=== PATIENT | female | born 2000 ===

== ENCOUNTER 2020-06-26 10:27 | Outpatient (REF) | payer OTHER, SELFPAY | END 2020-06-26 10:28 | disposition home or self-care (01) | LOC: HO.LAB 10:27 | PROVIDERS: Visit Provider Internal Medicine | DX: Z20.822 Contact with and (suspected) exposure to COVID-19 (principal) | CPT/HCPCS: 36415; C9803; U0003 ==

== ENCOUNTER 2020-10-13 16:02 | Emergency (ER) | payer MEDICAID, SELFPAY ==
--- NOTE | ~2020-10-13 | XR_ITS ---
EXAMINATION: XR ANKLE, RIGHT CLINICAL INFORMATION: Trauma COMPARISON: None TECHNIQUE: AP, lateral, and mortise views of the right ankle. FINDINGS: The bones and soft tissues are normal. No fracture. Alignment is anatomic. Joint spaces are maintained. No joint effusion. XR/XR ankle RT min 3V IMPRESSION: Normal right ankle.
[2020-10-13 16:03] VITALS: BP 109/57; PULSE 95; RESP 12; TEMP 36.9; O2SAT 99; BMI 29.6
--- NOTE | 2020-10-13 16:15 | ED_ITS ---
HPI - Extremity Injury (Lower) General Chief Complaint: Extremity Injury, Lower Stated Complaint: ankle inj Time Seen by Provider: 10/13/20 16:15 History of Present Illness HPI Narrative: Patient complains of right ankle pain and swelling after twisting it at the gym today, no other injury, no numbness weakness or tingling, no neck pain or back pain Related Data Previous Rx's Medication Instructions Recorded ibuprofen 600 mg PO Q6H PRN #20 tab 10/13/20 Allergies Allergy/AdvReac Type Severity Reaction Status Date / Time No Known Allergies Allergy Verified 10/13/20 16:14 [No Known Allergies*] Review of Systems Review of Systems: Positive for right ankle pain and swelling No numbness no weakness no tingling no fever no chills no headache no neck pain no back pain no radiating pain no skin rash Yes all other systems are reviewed and are negative [facility] Past Medical History Source: nursing notes reviewed Social History Social History Advance Directives: No Advance Directives Information Provided: No Patient : No Physical Exam Vital Signs: Vital Signs: Last Vital Signs Temp 98.5 F 10/13/20 16:03 Pulse 95 10/13/20 16:03 Resp 12 10/13/20 16:03 BP 109/57 L 10/13/20 16:03 Pulse Ox 99 10/13/20 16:03 Body Mass Index 29.6 General appearance no acute distress Head is normocephalic atraumatic The neck is supple nontender Respiratory no distress A back full range of motion Extremities the right ankle has tenderness and swelling over lateral malleolus, no tenderness or defect over Achilles tendon, skin was normal no wounds or laceration Neurovascular intact distal Other extremities normal Neuro no gross motor or sensory deficit Discharge Plan Discharge Clinical Impression: Right ankle sprain Patient Disposition: Home, Self-Care Additional Instructions: X-ray was normal, no broken bone seen Follow with orthopedist Weightbearing as tolerated Return any concerns Prescriptions: New ibuprofen 600 mg tablet 600 mg PO Q6H PRN (Reason: pain) Qty: 20 RF: 0 Referrals: Juma Leger MD [Physician] - 2 days (Right ankle sprain) Interventions: ED Discharge Assessment Last Done: 10/13/20 16:48 Discharge Date/Time: 10/13/20 16:48
--- NOTE | 2020-10-13 16:45 | PC.NURSE ---
PT PROVIDED AND EDUCATED ON USE OF CRUTCHES AND GIVEN AIRCAST. PT TOLERATES WELL.
== END 2020-10-13 16:48 | disposition home or self-care (01) ==
PROVIDERS: Emergency Provider Emergency Medicine; PCP Pediatrics
DX: S93.401A Sprain of unspecified ligament of right ankle, initial encounter (principal); X50.1XXA Overexertion from prolonged static or awkward postures, initial encounter; Y93.89 Activity, other specified; Y92.39 Other specified sports and athletic area as the place of occurrence of the external cause; Y99.9 Unspecified external cause status
CPT/HCPCS: 73610; 99283

== ENCOUNTER → 2020-10-26 10:51 | Outpatient (BNVA) | payer OTHER, SELFPAY | PROVIDERS: PCP Pediatrics; Visit Provider Physician Assistant | DX: S93.401A Sprain of unspecified ligament of right ankle, initial encounter (principal) | CPT/HCPCS: 99202 ==

== ENCOUNTER 2021-05-09 10:33 | Emergency (ER) | payer OTHER, SELFPAY ==
--- NOTE | ~2021-05-09 | US_ITS ---
EXAMINATION: US PELVIS CLINICAL INFORMATION: Left lower quadrant pain with radiation to rectum. COMPARISON: CT abdomen and pelvis with contrast 07/20/2019 TECHNIQUE: Ultrasound of the pelvis is performed using transabdominal transducer. Patient declined transvaginal imaging. FINDINGS: Uterus: The uterus is anteverted and anteflexed measuring 8.3 x 4.5 x 4.3 cm. The double wall endometrial thickness is 13 mm. No fluid in uterine cavity. There is a right exophytic fibroid extending from the uterine fundus and body with overall size 5.4 x 4.8 x 4.9 cm. This is increased in size from CT measurement 3.3 x 2.7 x 2.9 cm. Adnexa: The right ovary is visualized measuring 2.3 x 1.6 x 1.8 cm. The left ovary is not visualized. There is no visible left pelvic mass or pelvic ascites. US/US pelvic complete IMPRESSION: 1. Right exophytic fibroid 5.4 cm. Prior measurement 3.[address] 07/20/2019. 2. Right ovary unremarkable. Left ovary not visualized. No pelvic ascites.
[2021-05-09 11:28] VITALS: BP 112/98; PULSE 94; RESP 18; TEMP 36.6; O2SAT 99; BMI 32.8
[2021-05-09 12:07] LABS: Basophils Percent Auto 0.4 % (0-2); Eosinophils Absolute Auto 0.1 X10*3/uL (0.0-0.4); Hematocrit 38.6 % (37.0-47.0); Hemoglobin 12.7 g/dl (12.0-16.0); Imm Gran Abs Auto 0.03 X10*3/uL (0.00-0.03); Imm Gran Pct Auto 0.4 % (0.0-0.4); Lymphocytes Absolute Auto 1.4 X10*3/uL (1.2-4.9); Lymphocytes Percent Auto 16.3 % (20-40); MANUAL DIFF FLAG NO; Mean Corpuscular HGB Conc 32.9 g/dl (31.0-35.0); Mean Corpuscular Hemoglobin 31.6 pg (27.0-33.0); Mean Platelet Volume 9.8 fL (9.4-12.3); Monocytes Absolute Auto 0.5 X10*3/uL (0.1-1.2); Monocytes Percent Auto 6.2 % (2-11); Neutrophils Absolute Auto 6.3 x10*3/uL (2.0-8.3); Neutrophils Percent Auto 75.7 % (45-73); Platelet Count 294 X10*3/uL (160-400); Red Blood Count 4.02 X10*6/uL (4.20-5.50); Red Cell Distribution Width 11.8 % (11.0-16.0); White Blood Count 8.4 X10*3/uL (4.8-10.8)
[2021-05-09 12:23] LABS: Anion Gap 13 (12-20); Blood Urea Nitrogen 8 mg/dL (9-16); Calcium 9.8 mg/dL (8.4-10.2); Carbon Dioxide 22 mmol/L (22-29); Chloride 108 mmol/L (96-108); Creatinine Clr Calc Pharmacy 115.1; Estimated Glomerular Filt Rate > 60; Glucose Random 94 mg/dL (60-115); Potassium 3.9 mmol/L (3.3-5.1); Sodium 139 mmol/L (135-145)
--- NOTE | 2021-05-09 12:24 | ED_ITS ---
HPI - Abdominal Pain General Chief Complaint: Abdominal Pain Stated Complaint: lower l abd pain Time Seen by Provider: 05/09/21 12:24 Source: patient Mode of arrival: ambulatory Limitations: no limitations History of Present Illness HPI narrative: left lower abdominal pain for 1 day, patient feels it going into the anal area. LMP 2 weeks ago MD elicited complaint: abdominal pain Onset (ago): day(s) Pain Consistency: intermittent Location: LLQ Severity: mild Quality: stabbing Associated symptoms: nausea and diarrhea Related Data Previous Rx's Medication Instructions Recorded ibuprofen 600 mg tablet 600 mg PO Q6H PRN #20 tab 10/13/20 naproxen 500 mg tablet (Naprosyn) 500 mg PO BID #20 tab 05/09/21 Allergies Allergy/AdvReac Type Severity Reaction Status Date / Time No Known Allergies Allergy Verified 10/26/20 10:56 [No Known Allergies*] Review of Systems Constitutional: Reports no additional constitutional complaints Eyes: Reports no additional eye complaints Denies dizziness Cardiovascular: Reports no additional cardiovascular complaints Respiratory: Reports as per HPI Gastrointestinal: Reports no additional gastrointestinal complaints Genitourinary: Reports no additional female genitourinary complaints Musculoskeletal: Reports no additional musculoskeletal complaints Skin/Breast: Denies rash Reports system reviewed and no additional complaints, except as documented, Denies dizziness and Denies Sensory deficit (Neuro) Psychiatric: Denies anxiety Physical Exam Vital Signs: Vital Signs: Last Vital Signs Temp 98 F 05/09/21 11:28 Pulse 94 05/09/21 11:28 Resp 18 05/09/21 11:28 BP 112/98 H 05/09/21 11:28 Pulse Ox 99 05/09/21 11:28 BMI result Body Mass Index 32.8 Const: General: healthy appearing Nutritional Appearance: average body florez bitus Orientation/consciousness: oriented to person and patient oriented x3 Limitations: no limitations HENMT: Head: Yes normal to inspection Ears: external ears normal General nose exam: Normal external nose present Mouth: Normal oral and palatal mucosa present and oropharynx normal Throat: Yes posterior oropharynx normal Eyes: General: appearance normal, both eyes and all related structures Neck: Other: supple Neck: Yes normal visual inspection Chest: Chest palpation & inspection: normal inspection of the chest Resp: Auscultation: clear to auscultation bilaterally Cardio: Jugular venous distension: no JVD Rate: regular rate Rhythm: regular rhythm Heart sounds: S1 normal heart sound present and S2 normal heart sound present GI: Inspection: Yes normal to inspection Palpation (GI): Soft to palpation, nontender and No hepatosplenomegaly present Auscultation: normal bowel sounds : General: Yes no CVA tenderness Back/Spine/Pelvis: Back: no CVA tenderness Skin: General skin exam: no rashes or lesions noted Neuro: General: oriented to person and patient oriented x3 Cranial nerves: Yes CN's II-XII intact bilaterally Motor exam (neuro): 5/5 motor strength present throughout Sensory Exam: No Sensory deficit (Neuro) Extrem: General: Yes normal to inspection Psych: Appearance: grossly normal Course Reevaluation(s) Reevaluation #1: patient with an enlarging fibroid will refer to [facility] for evaluation Time: 15:17 MDM - Abdominal Pain Lab Data Result diagrams: 05/09/21 11:52 05/09/21 11:52 Labs: Lab Results 05/09/21 05/09/21 05/09/21 Range/Units 11:52 11:52 12:31 WBC 8.4 (4.8-10.8) X10*3/uL RBC 4.02 L (4.20-5.50) X10*6/uL Hgb 12.7 (12.0-16.0) g/dl Hct 38.6 (37.0-47.0) % MCV 96.0 (80.0-98.0) fL MCH 31.6 (27.0-33.0) pg MCHC 32.9 (31.0-35.0) g/dl RDW 11.8 (11.0-16.0) % Plt Count 294 (160-400) X10*3/uL MPV 9.8 (9.4-12.3) fL Immature Gran % (Auto) 0.4 (0.0-0.4) % Neut % (Auto) 75.7 H (45-73) % Lymph % (Auto) 16.3 L (20-40) % [place] % (Auto) 6.2 (2-11) % Eos % (Auto) 1.0 (0-4) % Baso % (Auto) 0.4 (0-2) % Lymph # (Auto) 1.4 (1.2-4.9) X10*3/uL [place] # (Auto) 0.5 (0.1-1.2) X10*3/uL Eos # (Auto) 0.1 (0.0-0.4) X10*3/uL Baso # (Auto) 0.0 (0.0-0.2) X10*3/uL Abs Immat Gran (auto) 0.03 (0.00-0.03) X10*3/uL Absolute Neuts (auto) 6.3 (2.0-8.3) x10*3/uL Absolute Nucleated RBC 0.000 (0.0-0.012) X10*3/uL Nucleated RBC % (auto) 0.0 (0.0-0.2) /100WBC Sodium 139 (135-145) mmol/L Potassium 3.9 (3.3-5.1) mmol/L Chloride 108 (96-108) mmol/L Carbon Dioxide 22 (22-29) mmol/L Anion Gap 13 (12-20) BUN 8 L (9-16) mg/dL Creatinine 0.80 (0.5-1.4) mg/dL Estim Creat Clear Calc 115.1 Estimated GFR > 60 Random Glucose 94 (60-115) mg/dL Calcium 9.8 (8.4-10.2) mg/dL Urine Color YELLOW Urine Appearance CLEAR Urine pH 6.0 (5.0-8.0) Ur Specific [place] 1.010 (1.005-1.025) Urine Protein NEG (NEG-TRACE) MG/DL Urine Glucose (UA) NEG (NEG) MG/DL Urine Ketones NEG (NEG) MG/DL Urine Blood TRACE (NEG) Urine Nitrite NEG (NEG) Ur Leukocyte Esterase NEG (NEG) Urine RBC 0-2 (0) /HPF Urine WBC 0 (0-4) /HPF Ur Squamous Epith Cells 2+ /LPF Urine Bacteria 1+ /LPF Urine Mucus 1+ /LPF Urine Test (NEGATIVE) 05/09/21 Range/Units 12:31 WBC (4.8-10.8) X10*3/uL RBC (4.20-5.50) X10*6/uL Hgb (12.0-16.0) g/dl Hct (37.0-47.0) % MCV (80.0-98.0) fL MCH (27.0-33.0) pg MCHC (31.0-35.0) g/dl RDW (11.0-16.0) % Plt Count (160-400) X10*3/uL MPV (9.4-12.3) fL Immature Gran % (Auto) (0.0-0.4) % Neut % (Auto) (45-73) % Lymph % (Auto) (20-40) % [place] % (Auto) (2-11) % Eos % (Auto) (0-4) % Baso % (Auto) (0-2) % Lymph # (Auto) (1.2-4.9) X10*3/uL [place] # (Auto) (0.1-1.2) X10*3/uL Eos # (Auto) (0.0-0.4) X10*3/uL Baso # (Auto) (0.0-0.2) X10*3/uL Abs Immat Gran (auto) (0.00-0.03) X10*3/uL Absolute Neuts (auto) (2.0-8.3) x10*3/uL Absolute Nucleated RBC (0.0-0.012) X10*3/uL Nucleated RBC % (auto) (0.0-0.2) /100WBC Sodium (135-145) mmol/L Potassium (3.3-5.1) mmol/L Chloride (96-108) mmol/L Carbon Dioxide (22-29) mmol/L Anion Gap (12-20) BUN (9-16) mg/dL Creatinine (0.5-1.4) mg/dL Estim Creat Clear Calc Estimated GFR Random Glucose (60-115) mg/dL Calcium (8.4-10.2) mg/dL Urine Color Urine Appearance Urine pH (5.0-8.0) Ur Specific [place] (1.005-1.025) Urine Protein (NEG-TRACE) MG/DL Urine Glucose (UA) (NEG) MG/DL Urine Ketones (NEG) MG/DL Urine Blood (NEG) Urine Nitrite (NEG) Ur Leukocyte Esterase (NEG) Urine RBC (0) /HPF Urine WBC (0-4) /HPF Ur Squamous Epith Cells /LPF Urine Bacteria /LPF Urine Mucus /LPF Urine Test NEGATIVE (NEGATIVE) Imaging Data pelvic US: Radiologist's impression: IMPRESSION: ? 1. Right exophytic fibroid 5.4 cm. Prior measurement 3.[address] 07/20/2019. 2. Right ovary unremarkable. Left ovary not visualized. No pelvic ascites. Discharge Plan Discharge Clinical Impression: Fibroid, uterine Qualifiers: Uterine leiomyoma location: intramural, submucous, and subserous Qualified Code(s): D25.1 - Intramural leiomyoma of uterus Patient Disposition: Home, Self-Care Prescriptions: New naproxen [Naprosyn] 500 mg tablet 500 mg PO BID Qty: 20 RF: 0 No Action ibuprofen 600 mg tablet 600 mg PO Q6H PRN (Reason: pain) Qty: 20 RF: 0 Referrals: Galindo Mcdonough MD [Physician] - 1 week [facility] [place] Social History Social History Advance Directives: No Advance Directives Information Provided: No Patient : No Current occupational status: unemployed Current occupation: rt handed
[2021-05-09 12:37] LABS: Appearance Urine CLEAR; Color Urine YELLOW; Glucose Urine UA NEG (NEG); Leukocyte Esterase Urine NEG (NEG); Nitrite Urine NEG (NEG); UACC Culture Trigger NO; Urine Blood TRACE (NEG); Urine Ketones NEG (NEG); Urine Protein NEG (NEG-TRACE)
[2021-05-09 12:40] LABS: UPreg QC Valid YES; Urine Pregnancy NEGATIVE (NEGATIVE)
[2021-05-09 12:52] LABS: Bacteria Urine 1+ /LPF; Mucus Urine 1+ /LPF; RBC Urine 0-2 /HPF (0); Squamous Epithelial Cell Urine 2+ /LPF; WBC Urine 0 /HPF (0-4)
== END 2021-05-09 15:38 | disposition home or self-care (01) ==
PROVIDERS: Emergency Provider Emergency Medicine; PCP Pediatrics
DX: D25.1 Intramural leiomyoma of uterus (principal); R10.32 Left lower quadrant pain; Z79.899 Other long term (current) drug therapy
CPT/HCPCS: 36415; 76856; 80048; 81001; 81025; 85025; 99283; 99284

== ENCOUNTER 2021-10-02 13:29 | Outpatient (REF) | payer OTHER, SELFPAY ==
[2021-10-02 15:23] LABS: C Reactive Protein 0.98 mg/dL (< or = 0.50)
[2021-10-04 13:02] LABS: Transglutaminase Ab IgG <1.0 U/mL; Transglutaminase IgA 1.1 U/mL
[2021-10-08 12:51] LABS: Gliadin Deamidated IgA Ab <1.0 U/mL; Gliadin Deamidated IgG Ab <1.0 U/mL
== END 2021-10-02 13:30 | disposition home or self-care (01) ==
LOC: HO.LAB 13:29
PROVIDERS: PCP Pediatrics; Visit Provider Nurse Practitioner
DX: K58.0 Irritable bowel syndrome with diarrhea (principal); R10.9 Unspecified abdominal pain; Q89.9 Congenital malformation, unspecified; E66.3 Overweight; Z68.34 Body mass index [BMI] 34.0-34.9, adult
CPT/HCPCS: 36415; 82785; 86003; 86140; 86258; 86364; 99212

== ENCOUNTER → 2021-10-29 16:31 | Outpatient (BNVA) | payer OTHER, SELFPAY | PROVIDERS: PCP Pediatrics; Visit Provider Nurse Practitioner | DX: K58.0 Irritable bowel syndrome with diarrhea (principal); R11.2 Nausea with vomiting, unspecified | CPT/HCPCS: 99212 ==

== ENCOUNTER → 2021-12-25 16:30 | Outpatient (BNVA) | payer OTHER, SELFPAY | PROVIDERS: PCP Pediatrics; Visit Provider Nurse Practitioner | DX: K58.0 Irritable bowel syndrome with diarrhea (principal) | CPT/HCPCS: 99212 ==

== ENCOUNTER 2022-01-27 20:08 | Emergency (ER) | payer OTHER, SELFPAY ==
--- NOTE | ~2022-01-27 | CT_ITS ---
EXAMINATION: CT ABDOMEN AND PELVIS WITH CONTRAST CLINICAL INFORMATION: Right-sided abdominal tenderness COMPARISON: 07/20/2019 TECHNIQUE: Multidetector volumetric images were obtained from the superior aspect of the liver through the pubic symphysis following administration 85 mL of Omnipaque 350 intravenous contrast. Sagittal and coronal reformatted images were obtained on the technologist's workstation. Oral contrast: No This CT examination was performed using dose optimization techniques as appropriate, variously including the following: *Automated exposure control *Adjustment of mA and/or kV according to patient size (this includes techniques or standardized protocols for targeted exams where dose is matched to indication/reason for exam; i.e. extremities or head) *Use of iterative reconstruction technique DLP: 644 mGy-cm FINDINGS: LUNG BASES: Groundglass opacities at the lung bases. The visualized cardiac structures are unremarkable. LIVER, GALLBLADDER, AND BILIARY TREE: The liver is normal in size, shape, and attenuation. No focal hepatic lesion or biliary ductal dilatation is present. The gallbladder is unremarkable with no evidence of radiopaque gallstones, gallbladder wall thickening, or obvious pericholecystic inflammatory changes. PANCREAS: Unremarkable. SPLEEN: Unremarkable. ADRENAL GLANDS: Unremarkable. KIDNEYS AND URETERS: The left kidney is atrophic. Normal size right kidney. No hydronephrosis or nephrolithiasis. BLADDER: Unremarkable. GASTROINTESTINAL TRACT: The stomach is unremarkable. Normal caliber small bowel. No obstruction. Normal appendix. No colonic wall thickening or inflammation. No free air. Small volume of free fluid ABDOMINAL WALL: . Rectus diastases. No abdominal wall hernia seen. LYMPH NODES: Normal. VASCULAR: 13 vascular anatomy. The hepatic veins drain anteriorly into the IVC. The suprahepatic/intrahepatic IVC is not normally positioned. There is azygos continuation of the intrahepatic IVC. Normal caliber aorta. PELVIC VISCERA: Anteverted uterus. There is a heterogeneous hyperdense structure measuring 6.9 x 5.5 cm anterior to the uterine fundus. There is surrounding free fluid. This finding is increased from prior. This again may represent an exophytic fibroid. OSSEOUS STRUCTURES: No acute or suspicious osseous abnormality. CT/CT abdomen pelvis w con IMPRESSION: Increasing size of the heterogeneously enhancing mass in the anterior pelvis adjacent to the uterine fundus, again suggestive of an exophytic fibroid. Small volume of free fluid now present. Variant vascular anatomy, detailed above. Fleischner guidelines were followed.
[2022-01-27 20:19] VITALS: BP 108/64; PULSE 93; RESP 20; TEMP 36.6; O2SAT 97; BMI 33.6
[2022-01-27 22:55] VITALS: BP 116/70; PULSE 72; TEMP 37; O2SAT 96
--- NOTE | 2022-01-27 23:36 | ED.ABDPAIN ---
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 She reports the pains are sharp and stabbing in nature. She has nausea but has not vomited. Last BM today and it was normal. She reports a history of dairy allergy where she gets severe abdominal pain and anal spasms. She reports accidentally eating butter last night and thinks that this pain is due to her allergy. She took Benadryl before coming in. <DOROTHY Cisneros - Last Filed: 01/28/22 02:09> MD elicited complaint: abdominal pain <DOROTHY Cisneros Last Filed: 01/28/22 02:09> Pertinent past history: none <DOROTHY Cisneros Last Filed: 01/28/22 02:09> Onset (ago): hour(s) <DOROTHY Cisneros Last Filed: 01/28/22 02:09> Pain Consistency: constant <DOROTHY Cisneros Last Filed: 01/28/22 02:09> Location: periumbilical, RUQ and RLQ <DOROTHY Cisneros Last Filed: 01/28/22 02:09> Severity: moderate <DOROTHY Cisneros Last Filed: 01/28/22 02:09> Quality: stabbing and sharp <DOROTHY Cisneros Last Filed: 01/28/22 02:09> Radiation: none <DOROTHY Cisneros Last Filed: 01/28/22 02:09> Migration to: no migration <DOROTHY Cisneros Last Filed: 01/28/22 02:09> Exacerbating factors: movement <DOROTHY Cisneros Last Filed: 01/28/22 02:09> Relieving factors: nothing <DOROTHY Cisneros Last Filed: 01/28/22 02:09> Associated symptoms: nausea <DOROTHY Cisneros Last Filed: 01/28/22 02:09> Related Data Home Medications: Previous Rx's Medication Instructions Recorded ibuprofen 600 mg tablet 600 mg PO Q6H PRN pain #20 tabs 10/13/20 naproxen 500 mg tablet (Naprosyn) 500 mg PO BID #20 tabs 05/09/21 imipramine HCl 10 mg tablet 10 mg PO BEDTIME 30 days #30 tabs 10/02/21 <DOROTHY Cisneros Last Filed: 01/28/22 02:09> Allergies/Adverse Reactions: Allergies Allergy/AdvReac Type Severity Reaction Status Date / Time milk Allergy Mild unknown Verified 12/25/21 16:33 <DOROTHY Cisneros Last Filed: 01/28/22 02:09> Review of Systems Review of Systems Constitutional: No Fever, No Chills ENT/Mouth: No sore throat, No Rhinorrhea, No Swallowing Difficulty Eyes: No Eye Pain, No Swelling, No Redness Cardiovascular: No Chest Pain, No SOB, No Orthopnea, No Edema Respiratory: No Cough, No Sputum, No Wheezing, No dyspnea Gastrointestinal: + Nausea, No Vomiting, No Diarrhea, + abdominal Pain, No Hematochezia, No Melena Genitourinary: No Dysuria, No Urinary Frequency, No Hematuria Musculoskeletal: No joint pain, No Myalgias Skin: No Skin Lesions, No rash Neuro: No Weakness, No Numbness, No Dizziness, No Headache Psych: No Anxiety/Panic, No Depression Heme/Lymph: No Bruising, No Lymphadenopathy Endocrine: No Polyuria, No Polydipsia <DOROTHY Cisneros Last Filed: 01/28/22 02:09> PMFSH Past Medical History Surgical History: Surgical History H/O abdominal surgery H/O arthroscopic knee surgery History of bladder surgery <DOROTHY Cisneros - Last Filed: 01/28/22 02:09> Social History Social History: Social History Advance Directives: No Advance Directives Information Provided: Yes Current occupational status: unemployed Current occupation: rt handed <DOROTHY Cisneros - Last Filed: 01/28/22 02:09> Physical Exam ED Vital Signs: Vital Signs - 24 hr 01/27/22 20:19 01/27/22 22:55 01/27/22 23:57 Temperature 97.9 F 98.6 F Pulse Rate 93 72 Respiratory Rate 20 18 Blood Pressure 108/64 116/70 Pulse Oximetry 97 96 Oxygen Delivery Method Room Air Room Air BMI result Body Mass Index 33.6 <DOROTHY Cisneros - Last Filed: 01/28/22 02:09> Vital Signs - 24 hr 01/27/22 20:19 01/27/22 22:55 01/27/22 23:57 Temperature 97.9 F 98.6 F Pulse Rate 93 72 Respiratory Rate 20 18 Blood Pressure 108/64 116/70 Pulse Oximetry 97 96 Oxygen Delivery Method Room Air Room Air BMI result Body Mass Index 33.6 <China Frenandez DO - Last Filed: 01/28/22 02:36> Appearance: Alert. Oriented X3. No acute distress. Eyes: Pupils equal, round and reactive to light. ENT: Pharynx normal. Neck: Normal inspection. Neck supple. CVS: Normal heart rate and rhythm. Pulses normal. Respiratory: No respiratory distress. Breath sounds normal. Abdomen: Well-healed surgical abdominal scar in the mid abdomen and umbilical area. There is tenderness along the central abdomen, and right side of her abdomen with guarding. normal BS x4 Skin: Skin warm and dry. Normal skin color. Normal skin turgor. No rashes. Extremities: No lower extremity edema. Neuro: Oriented X 3. No motor deficit. No sensory deficit. 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 Tenderness on her abdomen with some guarding. Will get CT scan for further evaluation. 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 Tenderness on her abdomen with some guarding. Will get CT scan for further evaluation. CT scan uterine fibroid - patient aware we discussed following up with OB she is aware and plans to <China Fernandez DO - Last Filed: 01/28/22 02:36> Reevaluation(s) Reevaluation #1: Labs are unremarkable. CT scan is pending. Dr. Fernandez aware. <DOROTHY Cisneros - Last Filed: 01/28/22 02:09> MDM - Abdominal Pain Lab Data Result diagrams: : 01/27/22 23:54 01/27/22 23:54 <DOROTHY Cisneros - Last Filed: 01/28/22 02:09> Labs: Lab Results 01/27/22 01/27/22 01/28/22 Range/Units 23:54 23:54 00:03 WBC 10.1 (4.8-10.8) X10*3/uL RBC 4.34 (4.20-5.50) X10*6/uL Hgb 13.7 (12.0-16.0) g/dl Hct 40.6 (37.0-47.0) % MCV 93.5 (80.0-98.0) fL MCH 31.6 (27.0-33.0) pg MCHC 33.7 (31.0-35.0) g/dl RDW 11.9 (11.0-16.0) % Plt Count 351 (160-400) X10*3/uL MPV 9.6 (9.4-12.3) fL Immature Gran % (Auto) 0.3 (0.0-0.4) % Neut % (Auto) 70.9 (45-73) % Lymph % (Auto) 19.0 L (20-40) % [place] % (Auto) 7.0 (2-11) % Eos % (Auto) 2.4 (0-4) % Baso % (Auto) 0.4 (0-2) % Lymph # (Auto) 1.9 (1.2-4.9) X10*3/uL [place] # (Auto) 0.7 (0.1-1.2) X10*3/uL Eos # (Auto) 0.2 (0.0-0.4) X10*3/uL Baso # (Auto) 0.0 (0.0-0.2) X10*3/uL Abs Immat Gran (auto) 0.03 (0.00-0.03) X10*3/uL Absolute Neuts (auto) 7.1 (2.0-8.3) x10*3/uL Absolute Nucleated RBC 0.000 (0.0-0.012) X10*3/uL Nucleated RBC % (auto) 0.0 (0.0-0.2) /100WBC Sodium 139 (135-145) mmol/L Potassium 4.3 (3.3-5.1) mmol/L Chloride 103 (96-108) mmol/L Carbon Dioxide 24 (22-29) mmol/L Anion Gap 16 (12-20) BUN 15 D (9-16) mg/dL Creatinine 1.08 (0.5-1.4) mg/dL Estim Creat Clear Calc 85.7 Estimated GFR > 60 Random Glucose 97 (60-115) mg/dL Calcium 9.8 (8.4-10.2) mg/dL Magnesium 1.7 (1.6-2.6) mg/dL Total Bilirubin 0.6 (0.0-1.0) mg/dL Direct Bilirubin 0.3 (0.0-0.5) mg/dL AST 20 (5-31) U/L ALT 17 (0-31) U/L Alkaline Phosphatase 94 (39-117) U/L Total Protein 7.4 (6.5-8.0) g/dL Albumin 4.2 (3.5-5.0) g/dL Lipase 17 (8-78) U/L Urine Color Yellow Urine Appearance Clear Urine pH 6.5 (5.0-8.0) Ur Specific [place] 1.010 (1.005-1.025) Urine Protein Negative (Neg-Trace) mg/dL Urine Glucose (UA) Negative (Negative) mg/dL Urine Ketones Negative (Negative) mg/dL Urine Blood Negative (Negative) Urine Nitrite Negative (Negative) Ur Leukocyte Esterase Negative (Negative) Urine Test (NEGATIVE) 01/28/22 Range/Units 00:03 WBC (4.8-10.8) X10*3/uL RBC (4.20-5.50) X10*6/uL Hgb (12.0-16.0) g/dl Hct (37.0-47.0) % MCV (80.0-98.0) fL MCH (27.0-33.0) pg MCHC (31.0-35.0) g/dl RDW (11.0-16.0) % Plt Count (160-400) X10*3/uL MPV (9.4-12.3) fL Immature Gran % (Auto) (0.0-0.4) % Neut % (Auto) (45-73) % Lymph % (Auto) (20-40) % [place] % (Auto) (2-11) % Eos % (Auto) (0-4) % Baso % (Auto) (0-2) % Lymph # (Auto) (1.2-4.9) X10*3/uL [place] # (Auto) (0.1-1.2) X10*3/uL Eos # (Auto) (0.0-0.4) X10*3/uL Baso # (Auto) (0.0-0.2) X10*3/uL Abs Immat Gran (auto) (0.00-0.03) X10*3/uL Absolute Neuts (auto) (2.0-8.3) x10*3/uL Absolute Nucleated RBC (0.0-0.012) X10*3/uL Nucleated RBC % (auto) (0.0-0.2) /100WBC Sodium (135-145) mmol/L Potassium (3.3-5.1) mmol/L Chloride (96-108) mmol/L Carbon Dioxide (22-29) mmol/L Anion Gap (12-20) BUN (9-16) mg/dL Creatinine (0.5-1.4) mg/dL Estim Creat Clear Calc Estimated GFR Random Glucose (60-115) mg/dL Calcium (8.4-10.2) mg/dL Magnesium (1.6-2.6) mg/dL Total Bilirubin (0.0-1.0) mg/dL Direct Bilirubin (0.0-0.5) mg/dL AST (5-31) U/L ALT (0-31) U/L Alkaline Phosphatase (39-117) U/L Total Protein (6.5-8.0) g/dL Albumin (3.5-5.0) g/dL Lipase (8-78) U/L Urine Color Urine Appearance Urine pH (5.0-8.0) Ur Specific [place] (1.005-1.025) Urine Protein (Neg-Trace) mg/dL Urine Glucose (UA) (Negative) mg/dL Urine Ketones (Negative) mg/dL Urine Blood (Negative) Urine Nitrite (Negative) Ur Leukocyte Esterase (Negative) Urine Test NEGATIVE (NEGATIVE) <DOROTHY Cisneros - Last Filed: 01/28/22 02:09> Lab Results 01/27/22 01/27/22 01/28/22 Range/Units 23:54 23:54 00:03 WBC 10.1 (4.8-10.8) X10*3/uL RBC 4.34 (4.20-5.50) X10*6/uL Hgb 13.7 (12.0-16.0) g/dl Hct 40.6 (37.0-47.0) % MCV 93.5 (80.0-98.0) fL MCH 31.6 (27.0-33.0) pg MCHC 33.7 (31.0-35.0) g/dl RDW 11.9 (11.0-16.0) % Plt Count 351 (160-400) X10*3/uL MPV 9.6 (9.4-12.3) fL Immature Gran % (Auto) 0.3 (0.0-0.4) % Neut % (Auto) 70.9 (45-73) % Lymph % (Auto) 19.0 L (20-40) % [place] % (Auto) 7.0 (2-11) % Eos % (Auto) 2.4 (0-4) % Baso % (Auto) 0.4 (0-2) % Lymph # (Auto) 1.9 (1.2-4.9) X10*3/uL [place] # (Auto) 0.7 (0.1-1.2) X10*3/uL Eos # (Auto) 0.2 (0.0-0.4) X10*3/uL Baso # (Auto) 0.0 (0.0-0.2) X10*3/uL Abs Immat Gran (auto) 0.03 (0.00-0.03) X10*3/uL Absolute Neuts (auto) 7.1 (2.0-8.3) x10*3/uL Absolute Nucleated RBC 0.000 (0.0-0.012) X10*3/uL Nucleated RBC % (auto) 0.0 (0.0-0.2) /100WBC Sodium 139 (135-145) mmol/L Potassium 4.3 (3.3-5.1) mmol/L Chloride 103 (96-108) mmol/L Carbon Dioxide 24 (22-29) mmol/L Anion Gap 16 (12-20) BUN 15 D (9-16) mg/dL Creatinine 1.08 (0.5-1.4) mg/dL Estim Creat Clear Calc 85.7 Estimated GFR > 60 Random Glucose 97 (60-115) mg/dL Calcium 9.8 (8.4-10.2) mg/dL Magnesium 1.7 (1.6-2.6) mg/dL Total Bilirubin 0.6 (0.0-1.0) mg/dL Direct Bilirubin 0.3 (0.0-0.5) mg/dL AST 20 (5-31) U/L ALT 17 (0-31) U/L Alkaline Phosphatase 94 (39-117) U/L Total Protein 7.4 (6.5-8.0) g/dL Albumin 4.2 (3.5-5.0) g/dL Lipase 17 (8-78) U/L Urine Color Yellow Urine Appearance Clear Urine pH 6.5 (5.0-8.0) Ur Specific [place] 1.010 (1.005-1.025) Urine Protein Negative (Neg-Trace) mg/dL Urine Glucose (UA) Negative (Negative) mg/dL Urine Ketones Negative (Negative) mg/dL Urine Blood Negative (Negative) Urine Nitrite Negative (Negative) Ur Leukocyte Esterase Negative (Negative) Urine Test (NEGATIVE) 01/28/22 Range/Units 00:03 WBC (4.8-10.8) X10*3/uL RBC (4.20-5.50) X10*6/uL Hgb (12.0-16.0) g/dl Hct (37.0-47.0) % MCV (80.0-98.0) fL MCH (27.0-33.0) pg MCHC (31.0-35.0) g/dl RDW (11.0-16.0) % Plt Count (160-400) X10*3/uL MPV (9.4-12.3) fL Immature Gran % (Auto) (0.0-0.4) % Neut % (Auto) (45-73) % Lymph % (Auto) (20-40) % [place] % (Auto) (2-11) % Eos % (Auto) (0-4) % Baso % (Auto) (0-2) % Lymph # (Auto) (1.2-4.9) X10*3/uL [place] # (Auto) (0.1-1.2) X10*3/uL Eos # (Auto) (0.0-0.4) X10*3/uL Baso # (Auto) (0.0-0.2) X10*3/uL Abs Immat Gran (auto) (0.00-0.03) X10*3/uL Absolute Neuts (auto) (2.0-8.3) x10*3/uL Absolute Nucleated RBC (0.0-0.012) X10*3/uL Nucleated RBC % (auto) (0.0-0.2) /100WBC Sodium (135-145) mmol/L Potassium (3.3-5.1) mmol/L Chloride (96-108) mmol/L Carbon Dioxide (22-29) mmol/L Anion Gap (12-20) BUN (9-16) mg/dL Creatinine (0.5-1.4) mg/dL Estim Creat Clear Calc Estimated GFR Random Glucose (60-115) mg/dL Calcium (8.4-10.2) mg/dL Magnesium (1.6-2.6) mg/dL Total Bilirubin (0.0-1.0) mg/dL Direct Bilirubin (0.0-0.5) mg/dL AST (5-31) U/L ALT (0-31) U/L Alkaline Phosphatase (39-117) U/L Total Protein (6.5-8.0) g/dL Albumin (3.5-5.0) g/dL Lipase (8-78) U/L Urine Color Urine Appearance Urine pH (5.0-8.0) Ur Specific [place] (1.005-1.025) Urine Protein (Neg-Trace) mg/dL Urine Glucose (UA) (Negative) mg/dL Urine Ketones (Negative) mg/dL Urine Blood (Negative) Urine Nitrite (Negative) Ur Leukocyte Esterase (Negative) Urine Test NEGATIVE (NEGATIVE) <China Fernandez DO - Last Filed: 01/28/22 02:36> Discharge Plan Discharge Clinical Impression: Abdominal pain, Fibroid, uterine <DOROTHY Cisneros - Last Filed: 01/28/22 02:09> Patient Disposition: Home, Self-Care <DOROTHY Cisneros Last Filed: 01/28/22 02:09> Instructions: Abdominal Pain (ED) <DOROTHY Cisneros - Last Filed: 01/28/22 02:09> Additional Instructions: Your lab workup today was normal. Your urine was negative for infection and . Do not eat any dairy. please follow up with OB regarding uterine fibroid it is growing in size <DOROTHY Cisneros - Last Filed: 01/28/22 02:09> Prescriptions: No Action ibuprofen 600 mg tablet 600 mg PO Q6H PRN (Reason: pain) Qty: 20 0RF naproxen [Naprosyn] 500 mg tablet 500 mg PO BID Qty: 20 0RF imipramine HCl 10 mg tablet 10 mg PO BEDTIME 30 Days Qty: 30 3RF <DOROTHY Cisneros Last Filed: 01/28/22 02:09>
[2022-01-27 23:57] VITALS: RESP 18
[2022-01-27] MEDS: Morphine Sulfate 4 MG/ML CARTRIDGE IVPUSH (23:57)
[2022-01-27] MEDS: ondansetron HCL 4 MG/2 ML VIAL IVPUSH (23:57)
[2022-01-27] MEDS: 0.9 % Sodium Chloride 1,000 ML 999 ML IVCONT (23:57)
[2022-01-27 23:58] LABS: Basophils Percent Auto 0.4 % (0-2); Eosinophils Absolute Auto 0.2 X10*3/uL (0.0-0.4); Eosinophils Percent Auto 2.4 % (0-4); Hematocrit 40.6 % (37.0-47.0); Hemoglobin 13.7 g/dl (12.0-16.0); Imm Gran Abs Auto 0.03 X10*3/uL (0.00-0.03); Imm Gran Pct Auto 0.3 % (0.0-0.4); Lymphocytes Absolute Auto 1.9 X10*3/uL (1.2-4.9); MANUAL DIFF FLAG NO; Mean Corpuscular HGB Conc 33.7 g/dl (31.0-35.0); Mean Corpuscular Hemoglobin 31.6 pg (27.0-33.0); Mean Corpuscular Volume 93.5 fL (80.0-98.0); Mean Platelet Volume 9.6 fL (9.4-12.3); Monocytes Absolute Auto 0.7 X10*3/uL (0.1-1.2); Neutrophils Absolute Auto 7.1 x10*3/uL (2.0-8.3); Neutrophils Percent Auto 70.9 % (45-73); Platelet Count 351 X10*3/uL (160-400); Red Blood Count 4.34 X10*6/uL (4.20-5.50); Red Cell Distribution Width 11.9 % (11.0-16.0); White Blood Count 10.1 X10*3/uL (4.8-10.8)
[2022-01-28 00:10] LABS: Appearance Urine Clear; Color Urine Yellow; Glucose Urine UA Negative (Negative); Leukocyte Esterase Urine Negative (Negative); Nitrite Urine Negative (Negative); PH 6.5 (5.0-8.0); Urine Blood Negative (Negative); Urine Ketones Negative (Negative); Urine Protein Negative (Neg-Trace)
[2022-01-28 00:29] LABS: Alanine Aminotransferase 17 U/L (0-31); Albumin Level 4.2 g/dL (3.5-5.0); Alkaline Phosphatase 94 U/L (39-117); Anion Gap 16 (12-20); Aspartate Amino Transferase 20 U/L (5-31); Bilirubin Direct 0.3 mg/dL (0.0-0.5); Bilirubin Total 0.6 mg/dL (0.0-1.0); Blood Urea Nitrogen 15 mg/dL (9-16); Calcium 9.8 mg/dL (8.4-10.2); Carbon Dioxide 24 mmol/L (22-29); Chloride 103 mmol/L (96-108); Creatinine Clr Calc Pharmacy 85.7; Estimated Glomerular Filt Rate > 60; Glucose Random 97 mg/dL (60-115); Lipase 17 U/L (8-78); Magnesium 1.7 mg/dL (1.6-2.6); Potassium 4.3 mmol/L (3.3-5.1); Sodium 139 mmol/L (135-145); Total Protein 7.4 g/dL (6.5-8.0)
[2022-01-28 00:41] LABS: UPreg QC Valid YES; Urine Pregnancy NEGATIVE (NEGATIVE)
[2022-01-28] MEDS: iohexoL 350 MG/ML 100 ML INFUS..BTL IV (01:36)
== END 2022-01-28 02:50 | disposition home or self-care (01) ==
PROVIDERS: Physician Assistant; Emergency Provider Emergency Medicine
DX: D25.9 Leiomyoma of uterus, unspecified (principal); R10.2 Pelvic and perineal pain; R11.0 Nausea; Z79.899 Other long term (current) drug therapy
CPT/HCPCS: 36415; 74177; 80048; 80076; 81003; 81025; 83690; 83735; 85025; 96360; 96361; 99284; J2270; J2405; Q9967

== ENCOUNTER → 2022-02-19 16:37 | Outpatient (BNVA) | payer OTHER, SELFPAY | PROVIDERS: Visit Provider Nurse Practitioner | DX: K58.0 Irritable bowel syndrome with diarrhea (principal) | CPT/HCPCS: 99212 ==

== ENCOUNTER → 2022-03-15 12:59 | Outpatient (BNVA) | payer OTHER, SELFPAY | PROVIDERS: PCP Internal Medicine; Referring Provider Internal Medicine; Visit Provider Nurse Practitioner | DX: K58.0 Irritable bowel syndrome with diarrhea (principal); Q89.9 Congenital malformation, unspecified | CPT/HCPCS: 99212 ==

== ENCOUNTER → 2022-09-13 14:08 | Outpatient (BNVA) | payer OTHER, SELFPAY | PROVIDERS: PCP Internal Medicine; Visit Provider Nurse Practitioner | DX: K58.0 Irritable bowel syndrome with diarrhea (principal); Q89.9 Congenital malformation, unspecified | CPT/HCPCS: 99212 ==

== ENCOUNTER 2023-11-18 15:51 | Outpatient (AMB) | payer OTHER, SELFPAY ==
--- NOTE | 2023-11-18 15:53 | A.OFFVIS_ITS ---
Vital Signs 11/18/23 15:54 Height 5 ft 3 in Weight 164 lb 7.437 oz BMI 29.1 BP 115/71 Blood Pressure Location Lt brachial Position Sitting Pulse 92 Intake Visit Reasons: med refill appointment Intake Note: Carmela Alberto presents to in office visit today in follow up of IBS. CC: Patient states that she has been doing good with imipramine but sometimes she feels like it constipates her. 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 Again, we had simplify her regimen away from dicyclomine because that complex dosing regimen was too much for her to remember. With this she has remained satisfied with her GI regimen. ROV 6 mos (2) Congenital anomaly of abdomen: Code(s): Q89.9 - Congenital malformation, unspecified Medications: Refilled imipramine HCl 20 mg (2 x 10 mg) PO BEDTIME 30 days 60 tabs 6RF K58.0 - Irritable bowel syndrome with diarrhea TODAY'S VISIT She continues to be stable on her imipramine. She is quite satisfied with her GI regimen. She tells me that her partner is having a great deal of difficulty with GI issues that do not seem to be getting resolved with another GI practice and she asks if I will see her. She is extremely tearful about this situation and her partner's continue health problems. I let her know of course I will see her just to contact the primary and get a referral to me so we can do this appropriately so that I can gain access to her records to give her the best medical evaluation. Return office visit in 6 months FOR[facility]LY [facility], [facility] Surgical History H/O arthroscopic knee surgery History of bladder surgery H/O abdominal surgery Social History Current occupational status: unemployed Current occupation: rt handed Review of Systems Const Denies fatigue, Denies fever(s), Denies night sweats, Denies poor appetite and Denies weight loss ENT Reports Normal hearing present, Denies dental pain, Denies dysphagia, Denies hearing loss, Denies mouth pain, Denies odynophagia, Denies throat swelling, Denies tongue swelling and Reports other (Dentition adequate) Card Reports no additional complaints Resp Reports no additional complaints GI Details: Denies abdominal pain, Denies melena, Denies bloating, Denies hematochezia, Denies constipation, Reports GI cramping, Denies dysphagia, Denies excessive flatus, Denies early satiety, Denies heartburn, Denies diarrhea, Reports nausea, Denies odynophagia, Denies vomiting and Denies hematemesis Skin/Breast Denies pruritus, Denies lesions, Denies rash and Denies jaundice Neuro Reports Normal hearing present and Denies Abnormal speech present Psych Reports anxiety Endo Denies fatigue Aller/Immun Denies throat swelling and Denies tongue swelling Physical Exam Vital Signs: Last Vital Signs Pulse 92 11/18/23 15:54 BP 115/71 11/18/23 15:54 BMI result Body Mass Index 29.1 Const General: cooperative, no acute distress, well developed and well groomed Nutritional Appearance: well nourished and overweight Orientation/consciousness: oriented to person, oriented to place and oriented to time Limitations: No language barrier HEENT Head: Yes normocephalic and Yes atraumatic Eyes General: appearance normal, both eyes and all related structures Pupils: Equal, round and reactive pupils present Neck Neck: Yes normal visual inspection and Yes no lymphadenopathy Thyroid: Thyroid normal Resp Effort & Inspection: normal respiratory effort and able to speak in complete sentences Auscultation: clear to auscultation bilaterally Cardio Rate: regular rate Rhythm: regular rhythm Heart sounds: Normal, physiologic split S2 sound present Peripheral pulses: radial pulses present and posterior tibial pulses present GI Inspection: No distended and No Abdominal panniculus present Palpation (GI): Soft to palpation, nontender, no guarding, not rigid and No hepatosplenomegaly present Percussion: Yes normal to percussion Auscultation: normal bowel sounds Rectal Exam - Female: deferred Skin General skin exam: no rashes or lesions noted, turgor normal, skin not dry, no jaundice, No spider nevi and no striae Rashes: no rashes Nails: normal Neuro General: oriented to person, oriented to place and oriented to time Cranial nerves: Yes Equal, round and reactive pupils present and Yes Normal hearing present Speech: No Abnormal speech present Extrem General: Yes normal to inspection, No clubbing, No cyanosis and No edema Psych Appearance: grossly normal and well kempt Mental Status: mental status grossly normal Speech and movement: Normal speech and movement present Affect: Labile affect present and Sad affect present Attitude: cooperative Thought process: Normal thought process present and not confabulating Thought content: Normal thought content present Insight: Fair insight present (Psych) Judgement: Fair judgement present (Psych) Assessment & Plan Assessment & Plan (1) Irritable bowel syndrome with diarrhea: Code(s): K58.0 - Irritable bowel syndrome with diarrhea Category: Medical (2) Nausea and vomiting: Code(s): R11.2 - Nausea with vomiting, unspecified Category: Medical Plan She continues to be stable on her imipramine. She is quite satisfied with her GI regimen. She tells me that her partner is having a great deal of difficulty with GI issues that do not seem to be getting resolved with another GI practice and she asks if I will see her. She is extremely tearful about this situation and her partner's continue health problems. I let her know of course I will see her just to contact the primary and get a referral to me so we can do this appropriately so that I can gain access to her records to give her the best medical evaluation. Return office visit in 6 month Medications: New sennosides (Senna Laxative) 17.2 mg (2 x 8.6 mg) PO BEDTIME 60 tabs 6RF Refilled imipramine HCl 20 mg (2 x 10 mg) PO BEDTIME 60 tabs 6RF K58.0 - Irritable bowel syndrome with diarrhea Coding Level of Care Code Est Pt Level 3 (34462) Diagnoses Irritable bowel syndrome with diarrhea K58.0 Nausea and vomiting R11.2
[2023-11-18 15:54] VITALS: BP 115/71; PULSE 92; BMI 29.1
== END 2023-11-18 16:48 | disposition home or self-care (01) ==
PROVIDERS: PCP Internal Medicine; Visit Provider Nurse Practitioner
DX: K58.0 Irritable bowel syndrome with diarrhea (principal); R11.2 Nausea with vomiting, unspecified
CPT/HCPCS: 99213

== ENCOUNTER → 2023-11-18 15:51 | Outpatient (BNVA) | payer OTHER, SELFPAY | PROVIDERS: PCP Internal Medicine; Visit Provider Nurse Practitioner | DX: K58.0 Irritable bowel syndrome with diarrhea (principal); R11.2 Nausea with vomiting, unspecified | CPT/HCPCS: 99212 ==

== ENCOUNTER 2024-05-12 14:01 | Outpatient (AMB) | payer OTHER, SELFPAY ==
[2024-05-12 14:02] VITALS: BP 122/62; PULSE 101; BMI 27.8
--- NOTE | 2024-05-12 14:02 | MHC.OFFVIS ---
Vital Signs 05/12/24 14:02 Height 5 ft 3 in Weight 157 lb BMI 27.8 BP 122/62 Blood Pressure Location Lt brachial Position Sitting Pulse 101 H Intake Visit Reasons: 6 monthf ollow up Intake Note: Carmela Alberto presents to in office follow up of IBS. CC: Patient states that she is doing well and denies any new GI symptoms today. 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 She is quite satisfied with her GI regimen. She tells me that her partner is having a great deal of difficulty with GI issues that do not seem to be getting resolved with another GI practice and she asks if I will see her. She is extremely tearful about this situation and her partner's continue health problems. I let her know of course I will see her just to contact the primary and get a referral to me so we can do this appropriately so that I can gain access to her records to give her the best medical evaluation. Return office visit in 6 month Medications: New sennosides (Senna Laxative) 17.2 mg (2 x 8.6 mg) PO BEDTIME 60 tabs 6RF Refilled imipramine HCl 20 mg (2 x 10 mg) PO BEDTIME 60 tabs 6RF K58.0 - Irritable bowel syndrome with diarrhea TODAYS VISIT She continues to be stable on her imipramine. Return office visit in 6 months [facility] Surgical History H/O arthroscopic knee surgery History of bladder surgery H/O abdominal surgery Social History Current occupational status: unemployed Current occupation: rt handed Review of Systems Const Denies fatigue, Denies fever(s), Denies night sweats, Denies poor appetite and Denies weight loss ENT Reports Normal hearing present, Denies dental pain, Denies dysphagia, Denies hearing loss, Denies mouth pain, Denies odynophagia, Denies throat swelling, Denies tongue swelling and Reports other (Dentition adequate) Card Reports no additional complaints Resp Reports no additional complaints GI Details: Denies abdominal pain, Denies melena, Denies bloating, Denies hematochezia, Denies constipation, Reports GI cramping, Denies dysphagia, Denies excessive flatus, Denies early satiety, Denies heartburn, Denies diarrhea, Denies nausea, Denies odynophagia, Denies vomiting and Denies hematemesis Skin/Breast Denies pruritus, Denies lesions, Denies rash and Denies jaundice Neuro Reports Normal hearing present and Denies Abnormal speech present Endo Denies fatigue Aller/Immun Denies throat swelling and Denies tongue swelling Physical Exam Vital Signs: Last Vital Signs Pulse 101 H 05/12/24 14:02 BP 122/62 05/12/24 14:02 BMI result Body Mass Index 27.8 Const General: cooperative, no acute distress, well developed and well groomed Nutritional Appearance: well nourished and overweight Orientation/consciousness: oriented to person, oriented to place and oriented to time Limitations: No language barrier HEENT Head: Yes normocephalic and Yes atraumatic Eyes General: appearance normal, both eyes and all related structures Pupils: Equal, round and reactive pupils present Neck Neck: Yes normal visual inspection and Yes no lymphadenopathy Thyroid: Thyroid normal Resp Effort & Inspection: normal respiratory effort and able to speak in complete sentences Auscultation: clear to auscultation bilaterally Cardio Rate: regular rate Rhythm: regular rhythm Heart sounds: Normal, physiologic split S2 sound present Peripheral pulses: radial pulses present and posterior tibial pulses present GI Inspection: No distended and No Abdominal panniculus present Palpation (GI): Soft to palpation, nontender, no guarding, not rigid and No hepatosplenomegaly present Percussion: Yes normal to percussion Auscultation: normal bowel sounds Rectal Exam - Female: deferred Skin General skin exam: no rashes or lesions noted, turgor normal, skin not dry, no jaundice, No spider nevi and no striae Rashes: no rashes Nails: normal Neuro General: oriented to person, oriented to place and oriented to time Cranial nerves: Yes Equal, round and reactive pupils present and Yes Normal hearing present Speech: No Abnormal speech present Extrem General: Yes normal to inspection, No clubbing, No cyanosis and No edema Psych Appearance: grossly normal and well kempt Mental Status: mental status grossly normal Speech and movement: Normal speech and movement present Affect: normal affect Attitude: cooperative Thought process: Normal thought process present and not confabulating Thought content: Normal thought content present Insight: Fair insight present (Psych) Judgement: Fair judgement present (Psych) Assessment & Plan Assessment & Plan (1) Irritable bowel syndrome with diarrhea: Code(s): K58.0 - Irritable bowel syndrome with diarrhea Category: Medical Plan She continues to be stable on her imipramine. I prescribed the senna in case she became constipated but that has not been a problem. Return office visit in 6 months Medications: Refilled imipramine HCl 20 mg (2 x 10 mg) PO BEDTIME 60 tabs 6RF K58.0 - Irritable bowel syndrome with diarrhea imipramine HCl 20 mg (2 x 10 mg) PO BEDTIME 60 tabs 6RF K58.0 - Irritable bowel syndrome with diarrhea sennosides (Senna Laxative) 17.2 mg (2 x 8.6 mg) PO BEDTIME 60 tabs 6RF Coding Level of Care Code Est Pt Level 3 (42809) Diagnoses Irritable bowel syndrome with diarrhea K58.0
== END 2024-05-12 14:34 | disposition home or self-care (01) ==
PROVIDERS: PCP Internal Medicine; Visit Provider Nurse Practitioner
DX: K58.0 Irritable bowel syndrome with diarrhea (principal)
CPT/HCPCS: 99213

== ENCOUNTER → 2024-05-12 14:01 | Outpatient (BNVA) | payer OTHER, SELFPAY | PROVIDERS: PCP Internal Medicine; Visit Provider Nurse Practitioner | DX: K58.0 Irritable bowel syndrome with diarrhea (principal); R11.2 Nausea with vomiting, unspecified | CPT/HCPCS: 99212 ==

== ENCOUNTER 2025-01-12 09:30 | Outpatient (AMB) | payer OTHER, SELFPAY ==
[2025-01-12 09:32] VITALS: BP 113/62; PULSE 82; BMI 27.3
--- NOTE | 2025-01-12 09:32 | MHC.OFFVIS ---
Vital Signs 01/12/25 09:32 Height 5 ft 3 in Weight 153 lb 14.122 oz BMI 27.3 BP 113/62 Blood Pressure Location Rt brachial Position Sitting Pulse 82 Intake Visit Reasons: 6 mos FUV. R/S per ins conflict. Intake Note: Carmela returns to in office follow up of IBS. CC: Patient reports that for the past week she has been having more loose stools. She states that last night she was having abdominal discomfort and goose bumps . Denies other GI sympotms. Nutrition Consultant Required: No Accompanied by: Self / Same As Patient Allergies milk Allergy (Mild, Verified 01/12/25 09:40) unknown No Known Drug Allergies Allergy (Unknown, Verified 01/12/25 09:40) Unknown HPI HPI 6 mos FUV. R/S per ins conflict.: Details: Assessment & Plan (1) Irritable bowel syndrome with diarrhea: Code(s): K58.0 - Irritable bowel syndrome with diarrhea Category: Medical Plan She continues to be stable on her imipramine. I prescribed the senna in case she became constipated but that has not been a problem. Return office visit in 6 months Medications: Refilled imipramine HCl 20 mg (2 x 10 mg) PO BEDTIME 60 tabs 6RF K58.0 - Irritable bowel syndrome with diarrhea imipramine HCl 20 mg (2 x 10 mg) PO BEDTIME 60 tabs 6RF K58.0 - Irritable bowel syndrome with diarrhea sennosides (Senna Laxative) 17.2 mg (2 x 8.6 mg) PO BEDTIME 60 tabs 6RF TODAY'S VISIT She has been having 1 week of looser stools, not taking senna except prn. She has not had any change in other medications, and while she did not have fevers she did have goose bumps 1 day with discomfort in the upper stomach without being able to move her bowels. There are no known sick contacts at this time. I am tracking what seems to be some sort of virus that is going around. At this point I think it is too soon for us to make any big changes in her therapy, she has had no ongoing abdominal pain or digestive issues so to speak so I think we will just watch and wait. She continues on her imipramine 2 tablets at night. Return office visit in 8 weeks [facility] Medical History (Updated 01/12/25 @ 10:22 by TAN Uriarte) Nausea and vomiting Surgical History H/O arthroscopic knee surgery History of bladder surgery H/O abdominal surgery Social History Current occupational status: unemployed Current occupation: rt handed Review of Systems Const Denies fatigue, Denies fever(s), Denies night sweats, Denies poor appetite and Denies weight loss ENT Reports Normal hearing present, Denies dental pain, Denies dysphagia, Denies hearing loss, Denies mouth pain, Denies odynophagia, Denies throat swelling, Denies tongue swelling and Reports other (Dentition adequate) Card Reports no additional complaints Resp Reports no additional complaints GI Details: Denies abdominal pain, Denies melena, Denies bloating, Denies hematochezia, Denies constipation, Reports GI cramping, Denies dysphagia, Denies excessive flatus, Denies early satiety, Denies heartburn, Denies diarrhea, Reports loose stools, Denies nausea, Denies odynophagia, Denies vomiting and Denies hematemesis Skin/Breast Denies pruritus, Denies lesions, Denies rash and Denies jaundice Neuro Reports Normal hearing present and Denies Abnormal speech present Endo Denies fatigue Aller/Immun Denies throat swelling and Denies tongue swelling Physical Exam Vital Signs: Last Vital Signs Pulse 82 01/12/25 09:32 BP 113/62 01/12/25 09:32 BMI result Body Mass Index 27.3 Const General: cooperative, no acute distress, well developed and well groomed Nutritional Appearance: average body habitus and well nourished Orientation/consciousness: oriented to person, oriented to place and oriented to time Limitations: No language barrier HEENT Head: Yes normocephalic and Yes atraumatic Eyes General: appearance normal, both eyes and all related structures Pupils: Equal, round and reactive pupils present Neck Neck: Yes normal visual inspection and Yes no lymphadenopathy Thyroid: Thyroid normal Resp Effort & Inspection: normal respiratory effort and able to speak in complete sentences Auscultation: clear to auscultation bilaterally Cardio Rate: regular rate Rhythm: regular rhythm Heart sounds: Normal, physiologic split S2 sound present Peripheral pulses: radial pulses present and posterior tibial pulses present GI Inspection: No distended and No Abdominal panniculus present Palpation (GI): Soft to palpation, nontender, no guarding, not rigid and No hepatosplenomegaly present Percussion: Yes normal to percussion Auscultation: normal bowel sounds Rectal Exam - Female: deferred Skin General skin exam: no rashes or lesions noted, turgor normal, skin not dry, no jaundice, No spider nevi and no striae Rashes: no rashes Nails: normal Neuro General: oriented to person, oriented to place and oriented to time Cranial nerves: Yes Equal, round and reactive pupils present and Yes Normal hearing present Speech: No Abnormal speech present Extrem General: Yes normal to inspection, No clubbing, No cyanosis and No edema Psych Appearance: grossly normal and well kempt Mental Status: mental status grossly normal Speech and movement: Normal speech and movement present Affect: normal affect Attitude: cooperative Thought process: Normal thought process present and not confabulating Thought content: Normal thought content present Insight: Good insight present (Psych) Judgement: Good judgement present (Psych) Assessment & Plan Assessment & Plan (1) Irritable bowel syndrome with diarrhea: Code(s): K58.0 - Irritable bowel syndrome with diarrhea Category: Medical Plan She has been having 1 week of looser stools, not taking senna except prn. She has not had any change in other medications, and while she did not have fevers she did have goose bumps 1 day with discomfort in the upper stomach without being able to move her bowels. There are no known sick contacts at this time. I am tracking what seems to be some sort of virus that is going around. At this point I think it is too soon for us to make any big changes in her therapy, she has had no ongoing abdominal pain or digestive issues so to speak so I think we will just watch and wait. She continues on her imipramine 2 tablets at night. Return office visit in 8 weeks Coding Level of Care Code Est Pt Level 3 (45176) Diagnoses Irritable bowel syndrome with diarrhea K58.0
--- OUTSIDE RECORDS SUMMARY | 2025-01-12 09:53 | XMS_ITS | Clinical Summary ---
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 for pain 1 Active polyethylene glycol (MiraLax) 17 GM/SCOOP powderIndication s:Other constipation Take 17 g by mouth daily. Stir and dissolve powder into 4 to 8 ounces of beverage and then drink. 578 g 3 1 Active Additional Information Patient not taking.Reported on 04/18/2021 Active Problems Problem Noted Date Diagnosed Date Irritable bowel syndrome 10/03/2021 Overview (10/03/2021): Followed by GI at [facility]. [place] to have IBS with diarrhea. Awaiting UGI with SBFT. 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 Hart 03/26 - ordered Freeruarsalaner brace, PT and Naproxen. Saw Ortho for knee in May 2019 Hx of R knee arthroscopy with chondroplasty of the patella and lysis of adhesions in Jul 2018 Pt says she was told she needs a new knee Second opinion was recommended in [place] but then coronavirus happened Sleep difficulties 02/13/2018 Overview (04/18/2021): Discussed at length - Discussed good sleep hygiene at length Advised avoiding caffeine, don't eat too late, exercise everyday, turn off electronics one hour before bedtime Try to go to sleep and wake up at the same time each day No napping Discussed some strategies to help falling asleep - breathing exercises and progressive relaxation Pt says Melatonin helps in that she does not wake up a lot during the night but then gets up at a 6 am (which is fine if she can get to bed by 10 pm) Atrophy of left kidney 06/05/2016 Overview (04/27/2020): History of severe VU reflux, s/p Deflux procedure - followed by Renal (Dr. Padgett) though last note in chart from 2016 History of omphalocele 06/05/2016 Overview (04/27/2020): S/P surgery History of UTI 06/05/2016 History of vesicoureteral reflux 06/05/2016 Overview (04/18/2021): Hx severe L VU reflux - s/p Deflux Resolved Problems Problem Noted Date Diagnosed Date Resolved Date Need for case management follow-up 04/27/2020 04/18/2021 Overview (04/27/2020): STD screen not done due to national shortage of tests Immunizations Immunization Administration Dates Next Due DTaP 5 07/06/2004, 2,01/02/2001,11/07,2000 HPV Vaccine 9 Valent 11/22/2014 HPV, Quadrivalent 07/13/2014,05/20/2014 Hep A, ped/adol 11/22/2014,05/20/2014 Hep B, ped/adol 04/10/2001,2000,2000 Hib (PRP-T) 10/02/2001, 1,2000,09/03 IPV 07/06/2004, 1,2000,09/03 Influenza, injectable, quadrivalent 05/20/2014 Influenza, injectable, quadr ivalent, preservative free 04/27/2020,04/22/2019,02/12/2018,02/22 Influenza, intranasal, quadrivalent 05/22/2015 MMR 07/06/2004,07/08/2001 Meningococcal B Trumenba 04/27/2020,04/22/2019 Meningococcal Conj (Menactra) MCV4P 02/12/2018,0 02/24/2012 Pneumococcal Conjugate 01/02/2001,2000, Tdap 02/24/2012 Varicella 11/09/2007,10/02/2001 Family History Relation Name Status Comments Brother Alive Brother: Asthma Mother Alive Mother: Anemia Paternal Grandfather paterna l grandparent: Diabetes mellitus Social History Tobacco Use Types Packs/Day Years Used Date Smoking Tobacco: Never Smokeless Tobacco: Never Tobacco Cessation:Counseling Given: Yes Comments:Never smoker Alcohol Use Standard Drinks/Week Comments No 0 (1 standard drink = 0.6 oz pur e alcohol) Hunger/Food Answer Date Recorded In the last 12 months, did y ou or your family ever eat less than you felt you should because there wasn't enough money for food? No 04/16/2021 Stable Housing Answer Date Recorded Are you worried that in the next 2 months you may not have stable housing? No 04/16/2021 Transportation Concerns Answer Date Rec orded In the last 12 months, have you or your family ever had to go without healthcare because you didn't have a way to get there? No 04/16/2021 Hazards in Home Answer Date Recorded Think about the place you li ve. Do you have problems with any of the following? Pests (mice or roaches), mold, no/not working smoke detectors, water leaks, no window guards. No 2020 Financing Utilities Answer Date Recorde d In the last 12 months, has t he electric, gas, oil, or water [employer] threatened to shut off your services in your home? No 04/16/2021 Safety at Home Answer Date Recorded Are you or your family worried about feeling saf e in your home? No 04/16/2021 Outside Support Answer Date Recorded Do you feel that you need mo re support from other people or programs to help you care for yourself or your family? No 04/16/2021 Understanding Health Concerns Answer Da te Recorded Do you need help understandi ng your or your child's healthcare needs (diagnosis, medications, plan, etc.)? No 04/16/2021 Financing Health Concerns Answer Date R ecorded In the last 12 months, was t here a time when your child needed to see a doctor or get medications or supplies but could not because of cost? No 04/16/2021 Missing School or Work Answer Date Adriano rded Did you or your child miss s chool or work because of a health problem that could have been avoided? No 04/16/2021 Comments No Sex and Gender Information Value Date Recorded Sex Assigned at Not on file Legal Sex Female 5:22 PM EDT Gender Identity Not on file Sexual Orientation Not on file Last Filed Vital Signs Vital Sign Reading Time Taken Comments Blood Pressure 108/65 04/18/2021 4:10 PM EST Pulse 88 04/18/2021 4:10 PM EST Temperature 36.1 C (96.9 F) 12/05/2020 11:22 AM EDT Respiratory Rate - - Oxygen Saturation 100% 07/12/2014 12:00 AM EST Inhaled Oxygen Concentration - - Weight 85.7 kg (189 lb) 04/18/2021 4:10 PM EST Height 161.3 cm (5' 3.5 ) 04/18/2021 4:10 PM EST Body Mass Index 32.95 04/18/2021 4:10 PM EST Plan of Treatment Health Maintenance Due Date Last Done Comments DTaP,Tdap,and Td Vaccines (7 - Td or Tdap) 02/23/2022 02/24/2012, 07/06/2004, 01/20/2002, Additional history exists COVID-19 Vaccine ( season) 2024 Influenza Vaccines (#1) 2025 04/27/20 20, 04/22/2019, 02/12/2018, Additional history exists Pneumococcal Vaccine Aged Out 01/02/2001, 2000, 2000 No longer eligible based on patient's age to complete this topic Hepatitis B Vaccines Completed 04/10/2001, 2000, 2000 HIB Vaccines Completed 10/02/2001, 12/08, 2000, Additional history exists IPV Vaccines Completed 07/06/2004, 12/08, 2000, Additional history exists MMR Vaccines Completed 07/06/2004, 07/08/2001 Varicella Vaccines Completed 11/09/2007, 10/02/2001 HPV Vaccines Completed 11/22/2014, 09/2014, 05/20/2014 Hepatitis A Vaccines Completed 11/22/2014, 05/20/20 14 Meningococcal Vaccine Completed 02/12/2018, 012 Men B Vaccine Completed 04/27/2020, 04/22/2019 Procedures * Due to [place] [employer] law, this organization might not be sharing sensitive test results. Procedure Name Priority Date/Time Associated Diagnosis Comments CHLAMYDIA AND GONORRHEA, AMPLIFIED Routine 04/18/2021 5:00 PM EST Special screening examination for chlamydial disease from Last 3 Months or Most Recently Relevant to Health Maintenance Results * Due to [place] [employer] law, this organization might not be sharing sensitive test results. * Chlamydia and Gonorrhoea, Amplified (04/18/2021 5:00 PM EST) Chlamydia Trachomatis, DNA Probe NEGATIVE (NEG) [facility] Comment: No Chlamydia Trachomatis RNA detected in this patient's sample (REFERENCE RANGE/NORMAL VALUE: NOT DETECTED) Note: This test uses retirement consultant- mediated amplification method to detect rRNA from C. Trachomatis URINE GC AMP PROBE NEGATIVE (NEG) [facility] Comment: No Neisseria Gonorrhoeae RNA detected in this patient's sample (REFERENCE RANGE/NORMAL VALUE: NOT DETECTED) NOTE: This test uses retirement consultant-mediated amplification method to detect rRNA from N.Gonorrhoeae. A negative result does not preclude infection. In the case of a negative urine result, testing of an endocervical(female) or urethral (male) specimen is recommended if there is high clinical suspicion of infection. Due to very high sensitivity of Nucleic Acid Amplification Test, false positive results may occur. Therefore, specimen handling is extremely important. In patients in whom the disease is unlikely, additional sample for testing should be considered after an initial positive result. The performance characteristics of this test have not been evaluated in children. The Aptima Combo2 assay is not intended for the evaluation of suspected sexual abuse or for other medico-legal indications. The ordering provider should assess if the patient had consensual sex without risk of sexual abuse. Consult the [facility] if needed. Contact phone number . Therapeutic failure or success cannot be determined with the Aptima Combo2 assay since nucleic acid may persist following appropriate antimicrobial therapy. The Centers for Disease Control and Prevention (CDC) recommends confirmatory retesting using culture or a different nucleic acid amplification test when positive results occur, if indicated. Testing performed or reported by [facility], a Service of [facility], [address] [place] [address] Raymond Redmond MD, Autopsy Assistant [facility]# [id number] Urine 04/18/2021 5:00 PM EST 04/18/2021 10:51 PM EST us Alyssia Whitaker MD LAB MICROBIOLOGY - GENERAL ORDERABLES Final Result [facility] from Last 3 Months or Most Recently Relevant to Health Maintenance Insurance [facility] NON PCC
== END 2025-01-12 11:10 | disposition home or self-care (01) ==
LOC: HO.HGI 09:31
PROVIDERS: PCP Internal Medicine; Visit Provider Nurse Practitioner
DX: K58.0 Irritable bowel syndrome with diarrhea (principal)
CPT/HCPCS: 99213

== ENCOUNTER → 2025-01-12 09:30 | Outpatient (BNVA) | payer OTHER, SELFPAY | PROVIDERS: PCP Internal Medicine; Visit Provider Nurse Practitioner | DX: K58.0 Irritable bowel syndrome with diarrhea (principal) | CPT/HCPCS: 99212 ==